=== PATIENT | female | born 1995 | race African-American/Black ===

== ENCOUNTER 2019-09-30 15:47 | Observation (INO) | payer MEDICAID ==
[~2019-09-30] VITALS: Ht 172.7 cm; Wt 77.1 kg
[2019-09-30] MEDS ORDERED: LOV40 SQ (16:07)
[2019-09-30 17:33] LABS: CLARITY URINE CLEAR (CLEAR); COLOR URINE YELLOW (YELLOW); KETONES URINE NEGATIVE (NEGATIVE); LEUKOCYTE ESTERASE URINE 3+ (NEGATIVE); NITRITE URINE NEGATIVE (NEGATIVE); OCCULT BLOOD URINE NEGATIVE (NEGATIVE); PROTEIN URINE NEGATIVE (NEGATIVE); SPECIFIC GRAVITY URINE 1.005 (1.005-1.030)
[2019-10-23] MEDS ORDERED: LOV40 SQ (07:46)
[2019-10-23] MEDS ORDERED: IBUP-2030 PO (07:46)
[2019-10-23] MEDS ORDERED: FERR325T23 PO (07:46)
== END 2019-09-30 18:05 | disposition home or self-care (01) ==
LOC: 8 EST LDRP 15:47 → EDBD 15:47
PROVIDERS: ADMIT Obstetrics & Gynecology; ATTEND Obstetrics & Gynecology
DX: O26.893 Other specified pregnancy related conditions, third trimester (principal); R10.2 Pelvic and perineal pain; Z3A.35 35 weeks gestation of pregnancy
CPT/HCPCS: 76805; 76818; 81003; 99281; G0378

== ENCOUNTER 2019-10-22 07:23 | Inpatient (IN) | payer MEDICAID ==
[~2019-10-22] VITALS: Ht 172.7 cm; Wt 77.1 kg
[~2019-10-22 07:23] MED LIST: LOV40 SQ
[2019-10-22] MEDS ORDERED: LACTATED RINGERS 1,000 ML IV SCH (07:29)
[2019-10-22] MEDS ORDERED: MISOPROSTOL 100MCG TABLET VG PRN (07:30)
[2019-10-22] MEDS ORDERED: METHYLERGONOVINE MALEATE 0.2 MG/ML IM PRN (07:30)
[2019-10-22] MEDS ORDERED: CARBOPROST TROMETHAMINE 250 MCG/ML AMPUL IM PRN (07:30)
[2019-10-22] MEDS ORDERED: LIDOCAINE HCL 1% 20ML VIAL (Pyxis) INJ INFIL PRN (07:30)
[2019-10-22] MEDS ORDERED: NALOXONE HCL 0.4 MG/ML 1ML VIAL IM PRN (07:30)
[2019-10-22] MEDS ORDERED: BUTORPHANOL TARTRATE 2 MG/ML VIAL IV PRN (07:30)
[2019-10-22] MEDS ORDERED: PNV1TABL76 PO (07:46)
[2019-10-22] MEDS ORDERED: PENICILLIN G POTASSIUM 5 MMU in DEXT 5% WATER 100 ML IV NR (08:00)
[2019-10-22] MEDS: DEXT 5%/LR + PITOCIN 20UNITS/L 1,000 ML IV SCH (08:14)
[2019-10-22 08:24] LABS: BASOPHILS % 0.6 % (0.0-2.0); EOSINOPHILS % 0.5 % (0.0-5.0); HEMATOCRIT. 29.8 % (36.0-48.0); HEMOGLOBIN. 9.5 g/dL (12.0-16.0); LYMPHOCYTES % 22.2 % (20.0-50.0); MEAN CORPUSCULAR HEMOGLOBIN 22.1 pg (28.0-32.0); MEAN CORPUSCULAR VOLUME 69.6 fL (81.0-99.0); MEAN PLATELET VOLUME 8.3 fl (7.4-10.4); MONOCYTES % 6.3 % (2.0-8.0); NEUTROPHILS % 70.4 % (40.0-76.0); PLATELET 340 x1000/uL (130-400); RED BLOOD CELL COUNT 4.29 mill/uL (4.2-5.4); RED CELL DISTRIBUTION WIDTH 20.1 % (11.6-14.6)
[2019-10-22 08:30] LABS: INR 0.9; PARTIAL THROMBOPLASTIN TIME 27.1 sec (23.4-31.0); PROTHROMBIN TIME 10.3 sec (9.6-11.0)
[2019-10-22 08:34] LABS: CLARITY URINE CLEAR (CLEAR); COLOR URINE YELLOW (YELLOW); KETONES URINE 1+ (NEGATIVE); LEUKOCYTE ESTERASE URINE NEGATIVE (NEGATIVE); NITRITE URINE NEGATIVE (NEGATIVE); OCCULT BLOOD URINE 1+ (NEGATIVE); PH URINE 5.5 (4.5-8.0); PROTEIN URINE TRACE (NEGATIVE); SPECIFIC GRAVITY URINE 1.027 (1.005-1.030)
[2019-10-22 08:40] LABS: CHLORIDE 107 mEq/L (98-107)
[2019-10-22 08:50] LABS: *AMPHETAMINES SCREEN URINE NEGATIVE (NEGATIVE); *BARBITURATES SCREEN URINE NEGATIVE (NEGATIVE); *BENZODIAZEPINES SCREEN URINE NEGATIVE (NEGATIVE); CANNABINOID URINE SCREEN NEGATIVE (NEGATIVE); OPIATES URINE SCREEN NEGATIVE (NEGATIVE); PHENCYCLIDINE URINE SCREEN NEGATIVE (NEGATIVE)
[2019-10-22 08:51] LABS: *COCAINE SCREEN URINE NEGATIVE (NEGATIVE); METHADONE URINE SCREEN NEGATIVE (NEGATIVE)
[2019-10-22 08:58] LABS: PLATELET ESTIMATE NORMAL
[2019-10-22] MEDS ORDERED: DEXT 5%/LR + PITOCIN 20UNITS/L 1,000 ML IV SCH (09:21)
[2019-10-22] MEDS ORDERED: IBUPROFEN 400MG TABLET PO PRN (09:30)
[2019-10-22] MEDS ORDERED: OXYCODONE HCL/ACETAMINOPHEN 5/325MG TABLET PO PRN (09:30)
[2019-10-22] MEDS ORDERED: RHO(D) IMMUNE GLOBULIN 300 MCG/SYR IM PRN (09:30)
[2019-10-22] MEDS ORDERED: ENOXAPARIN 30MG/0.3ML SYR SUBCUT NR (09:30)
[2019-10-22] MEDS ORDERED: DIPHENHYDRAMINE 25MG CAPSULE PO PRN (09:30)
[2019-10-22] MEDS ORDERED: BENZOCAINE/LANOLIN/ALOE VERA SPRAY TOP PRN (09:30)
[2019-10-22] MEDS ORDERED: GLYCERIN/WITCH HAZEL LEAF MEDICATED PAD TOP PRN (09:30)
[2019-10-22] MEDS: IBUPROFEN 800MG TABLET PO PRN ×2 (09:35→17:58)
[2019-10-22 10:15] VITALS: BP 103/40
[2019-10-22 11:15] VITALS: BP 104/66
[2019-10-22] MEDS ORDERED: PENICILLIN G POTASSIUM 2.5 MMU in DEXTROSE 5% WATER 50 ML IV SCH (12:00)
[2019-10-22 12:54] LABS: HEPATITIS B SURFACE ANTIGEN NEGATIVE
[2019-10-22 16:18] VITALS: BP 114/63
[2019-10-22] MEDS ORDERED: DOCUSATE SODIUM 100MG CAPSULE PO SCH (21:00)
[2019-10-22 22:00] VITALS: BP 107/65
[2019-10-23 06:00] VITALS: BP 105/63
[2019-10-23 06:31] LABS: BASOPHILS % 0.6 % (0.0-2.0); EOSINOPHILS % 1.1 % (0.0-5.0); HEMATOCRIT. 24.3 % (36.0-48.0); HEMOGLOBIN. 7.7 g/dL (12.0-16.0); LYMPHOCYTES % 29.4 % (20.0-50.0); MEAN CORPUSCULAR VOLUME 69.4 fL (81.0-99.0); MEAN PLATELET VOLUME 8.2 fl (7.4-10.4); MONOCYTES % 6.7 % (2.0-8.0); NEUTROPHILS % 62.2 % (40.0-76.0); PLATELET 298 x1000/uL (130-400); RED BLOOD CELL COUNT 3.51 mill/uL (4.2-5.4); RED CELL DISTRIBUTION WIDTH 19.7 % (11.6-14.6)
[2019-10-23 07:30] VITALS: BP 98/60
[2019-10-23] MEDS ORDERED: FERROUS SULFATE 325MG TABLET PO SCH (07:30)
[2019-10-23] MEDS ORDERED: FERR325T23 PO (07:46)
[2019-10-23] MEDS ORDERED: LOV40 SQ (07:46)
[2019-10-23] MEDS ORDERED: IBUP-2030 PO (07:46)
[2019-10-23] MEDS: IBUPROFEN 800MG TABLET PO PRN (08:25)
[2019-10-23] MEDS ORDERED: ENOXAPARIN 40MG/0.4ML SYR SUBCUT SCH (09:00)
[2019-10-23] MEDS ORDERED: PRENATAL VIT/FE FUMARATE/FA TABLET PO SCH (09:00)
[2019-10-23] MEDS ORDERED: ENOXAPARIN 40MG/0.4ML SYR SUBCUT NR (09:00)
[2019-10-24] MEDS ORDERED: ENOXAPARIN 30MG/0.3ML SYR SUBCUT SCH (09:00)
== END 2019-10-23 13:00 | disposition home or self-care (01) | DRG 560 ==
LOC: 8 EST LDRP 07:23 → OBSVTOIN 07:23 → 8EST 11:08
PROVIDERS: ADMIT Specialist; ATTEND Specialist
PROC: 10E0XZZ Delivery of Products of Conception, External Approach (ICD-10-PCS; principal; 2019-10-22)
DX: O77.0 Labor and delivery complicated by meconium in amniotic fluid (principal); O69.81X0 Labor and delivery complicated by cord around neck, without compression, not applicable or unspecified; O99.02 Anemia complicating childbirth; Z37.0 Single live birth; Z3A.38 38 weeks gestation of pregnancy; Z83.3 Family history of diabetes mellitus
CPT/HCPCS: 36415; 80053; 80305; 81003; 85025; 86592; 86703; 86762; 86850; 86900; 87340; G0378; J1650; J2540; J2590; J7060; Q0163

== ENCOUNTER 2020-03-14 05:03 | Emergency (ER) | payer MEDICAID, OTHER ==
[~2020-03-14] VITALS: Ht 172.7 cm; Wt 59.0 kg
[~2020-03-14 05:03] MED LIST changes: +FERR325T23 PO; +IBUP-2030 PO; +PNV1TABL76 PO
[2020-03-14] MEDS ORDERED: SODIUM CHLORIDE 0.9% 1,000 ML IV ONE ×3 (06:00→11:00)
[2020-03-14] MEDS ORDERED: MORPHINE SULFATE 4 MG/ML CPJ (NOT FOR IM USE) IV ONE ×2 (07:15→11:00)
[2020-03-14] MEDS ORDERED: HYDROXYUREA 500MG CAPSULE PO ONE (07:15)
[2020-03-14] MEDS ORDERED: LORAZEPAM 2MG/ML CPJ IV ONE (07:15)
[2020-03-14] MEDS ORDERED: ENOXAPARIN 30MG/0.3ML SYR SUBCUT ONE (07:15)
[2020-03-14 07:34] LABS: BASOPHILS % 1.4 % (0.0-2.0); EOSINOPHILS % 3.3 % (0.0-5.0); HEMATOCRIT. 32.5 % (36.0-48.0); HEMOGLOBIN. 10.5 g/dL (12.0-16.0); LYMPHOCYTES % 48.6 % (20.0-50.0); MEAN CORPUSCULAR HEMOGLOBIN 25.8 pg (28.0-32.0); MEAN CORPUSCULAR VOLUME 79.6 fL (81.0-99.0); MEAN PLATELET VOLUME 7.9 fl (7.4-10.4); MONOCYTES % 7.6 % (2.0-8.0); NEUTROPHILS % 39.1 % (40.0-76.0); PLATELET 339 x1000/uL (130-400); RED BLOOD CELL COUNT 4.08 mill/uL (4.2-5.4); RED CELL DISTRIBUTION WIDTH 17.1 % (11.6-14.6)
[2020-03-14 07:42] LABS: CHLORIDE 108 mEq/L (98-107)
[2020-03-14 07:47] LABS: ETHANOL BLOOD < 10 mg/dL
[2020-03-14 08:45] LABS: CLARITY URINE CLEAR (CLEAR); COLOR URINE YELLOW (YELLOW); KETONES URINE NEGATIVE (NEGATIVE); LEUKOCYTE ESTERASE URINE TRACE (NEGATIVE); NITRITE URINE NEGATIVE (NEGATIVE); OCCULT BLOOD URINE NEGATIVE (NEGATIVE); PH URINE 6.5 (4.5-8.0); PROTEIN URINE NEGATIVE (NEGATIVE); SPECIFIC GRAVITY URINE 1.006 (1.005-1.030); UROBILINOGEN URINE 0.2 E.U./dL (0.2-1.0)
[2020-03-14 09:05] LABS: HCG SCREEN NEGATIVE
[2020-03-14] MEDS ORDERED: FENTANYL CITRATE/PF 50MCG/ML 2ML VIAL IV ONE (09:15)
[2020-03-14 09:17] LABS: *AMPHETAMINES SCREEN URINE NEGATIVE (NEGATIVE); *BARBITURATES SCREEN URINE NEGATIVE (NEGATIVE); *COCAINE SCREEN URINE NEGATIVE (NEGATIVE)
[2020-03-14 09:18] LABS: *BENZODIAZEPINES SCREEN URINE NEGATIVE (NEGATIVE); CANNABINOID URINE SCREEN NEGATIVE (NEGATIVE); METHADONE URINE SCREEN NEGATIVE (NEGATIVE); OPIATES URINE SCREEN NEGATIVE (NEGATIVE); PHENCYCLIDINE URINE SCREEN NEGATIVE (NEGATIVE)
[2020-03-14] MEDS ORDERED: ONDANSETRON HCL 4MG/2ML INJ IV ONE (11:00)
[2020-03-14] MEDS ORDERED: METOCLOPRAMIDE HCL 10MG/2ML VIAL IV ONE (12:45)
[2020-03-14] MEDS ORDERED: MAGNESIUM 1 G PREMIX 100 ML IV ONE (12:45)
[2020-03-14 13:12] VITALS: BP 128/76
[2020-03-14] MEDS ORDERED: IOHEXOL-350 100 ML BOTTLE ONE (14:35)
== END 2020-03-14 13:21 | disposition left against medical advice (07) ==
LOC: ER 05:03 → UNDOADMIN 11:02 → 5WST 11:02 → ENRESERV 11:35
DX: R07.89 Other chest pain (principal); J45.909 Unspecified asthma, uncomplicated; Z98.890 Other specified postprocedural states
CPT/HCPCS: 36415; 70450; 70496; 71045; 80053; 80305; 80320; 81003; 83690; 83880; 84484; 84703; 85025; 85044; 86850; 86900; 86901; 93005; 99285; J1650; J2060; J2270; J2405; J2765; J3010; J3475; J7030; Q9967; G0480